=== PATIENT | male | born 1945 | race Caucasian/White ===

== ENCOUNTER 2016-12-31 14:24 | Emergency (ER) | payer BC ==
[~2016-12-31] VITALS: Ht 188 cm; Wt 97.5 kg
[2016-12-31 14:26] VITALS: BP 135/77; PULSE 81; RESP 18; TEMP 98.3; O2SAT 91
[2016-12-31] MEDS ORDERED: RESP: ALBUTEROL 2.5 MG/IPRATROPIUM 0.5 MG NEB (SCH) NEB ONE ×2 (14:45)
--- NOTE | 2016-12-31 14:50 | PD ---
HPI Chief Complaint: Respiratory Symptoms Time Seen by Provider: 14:36 Travel History International Travel<30 days: No Contact w/Intl Traveler<30days: No Traveled to known affect area: No History of Present Illness HPI This patient complains of congestion and cough and shortness of breath. Patient has oxygen and nebulizer dependent COPD and continues to smoke. He is visiting from [place]. He denies fever or chest pain. Symptoms severity is moderate. No alleviating factors. Duration 4 days PFSH Past Medical History Cardiovascular Problems: Yes ([place], STENT X 1) Respiratory: Yes (COPD) Social History Alcohol Use: No Tobacco Use: Yes Substance Use: No Allergies-Medications (Allergen,Severity, Reaction): Coded Allergies: No Known Allergies (Unverified , 12/31/16) Reported Meds & Prescriptions Reported Meds & Active Scripts Active Reported Anoro Ellipta Inh (Umeclidinium/Vilanterol) 62.5-25 Mcg/Act Aero 1 Puff INH DAILY Amlodipine (Amlodipine Besylate) 2.5 Mg Tab 2.5 Mg PO DAILY Lisinopril 40 Mg Tab 40 Mg PO DAILY Metoprolol Tartrate 25 Mg Tab 25 Mg PO BID Review of Systems General / Constitutional: No: Fever Eyes: No: Visual changes HENT: Positive: Congestion, No: Headaches Cardiovascular: No: Chest Pain or Discomfort Respiratory: Positive: Cough, Shortness of Breath, Wheezing Gastrointestinal: No: Abdominal Pain Genitourinary: No: Dysuria Musculoskeletal: No: Pain Skin: No Rash Neurologic: No: Weakness Psychiatric: No: Depression Endocrine: No: Polydipsia Hematologic/Lymphatic: No: Easy Bruising Physical Exam Narrative GENERAL: Well-nourished, well-developed patient in no apparent distress. SKIN: Focused skin assessment reveals no rash and nodules. Skin is Warm and dry. HEAD: Atraumatic. Normocephalic. EYES: Pupils equal and round. No scleral icterus. No injection or drainage. ENT: No nasal bleeding or discharge. Mucous membranes pink and moist. NECK: Trachea midline. No JVD. CARDIOVASCULAR: Regular rate and rhythm. No murmur appreciated. RESPIRATORY: No accessory muscle use. Diffuse expiratory wheezes and some rhonchi. Breath sounds equal bilaterally. GASTROINTESTINAL: Abdomen soft, non-tender, nondistended. Hepatic and splenic margins not palpable. MUSCULOSKELETAL: No obvious deformities. No clubbing. No cyanosis. No edema. NEUROLOGICAL: Awake and alert. No obvious cranial nerve deficits. Motor grossly within normal limits. Normal speech. PSYCHIATRIC: Appropriate mood and affect; insight and judgment poor. Data Data Last Documented VS Vital Signs Date Time Temp Pulse Resp B/P Pulse Ox O2 Delivery O2 Flow Rate FiO2 12/31/16 14:55 93 Nasal Cannula 3.00 12/31/16 14:50 18 12/31/16 14:26 98.3 81 135/77 Orders Chest, Single Ap (12/31/16 ) Albuterol-Ipratropium Neb (Duoneb Neb) (12/31/16 14:45) Albuterol-Ipratropium Neb (Duoneb Neb) (12/31/16 14:45) Methylprednisolone So Succ Inj (Solumedr (01/01/17 09:00) Methylprednisolone So Succ Inj (Solumedr (12/31/16 15:00) MDM Medical Decision Making Medical Screen Exam Complete: Yes Emergency Medical Condition: Yes Medical Record Reviewed: Yes Differential Diagnosis Differential diagnosis includes COPD, asthma, pneumonia, bronchitis, CHF Narrative Course I have reviewed the patient's electronic medical record. I gave him a series of nebulizer treatments I gave him an injection of Solu-Medrol I reviewed his chest x-ray which shows only atelectasis in the left base otherwise normal On recheck he is clear and much better Stable for outpatient follow-up Discussed importance of smoking cessation He has a nebulizer with him and oxygen Prednisone written Diagnosis Primary Impression: COPD with acute exacerbation Additional Instructions: The patient was advised to follow up with their physician and return if they worsen. Med/Other Pt SpecificInfo: Prescription(s) given Scripts Prednisone 20 Mg Tab20 Mg PO DAILY #5 TAB Ref 0 Prov:Ephraim Washington MD 12/31/16 Disposition: 01 DISCHARGE HOME Condition: Stable Ephraim Washington MD Dec 31, 2016 14:50
[2016-12-31] MEDS ORDERED: UMEC1AER INH (14:51)
[2016-12-31] MEDS ORDERED: METO25TA3 PO (14:51)
[2016-12-31] MEDS ORDERED: LISI40TA PO (14:51)
[2016-12-31] MEDS ORDERED: AMLO2.5T PO (14:51)
[2016-12-31 14:55] VITALS: O2SAT 93
[2016-12-31] MEDS ORDERED: methylPREDNISolone SOD SUCC 125 MG/2 ML VIAL IM ONE (15:00)
--- NOTE | 2016-12-31 15:08 | RADRPT ---
EXAM DATE/TIME: 12/31/2016 14:55 [facility] COMPARISON: No previous studies available for comparison. INDICATIONS : Shortness of breath. MEDICAL HISTORY : Hypertension. Myocardial infarction. Chronic obstructive pulmonary disease. SURGICAL HISTORY : Cholecystectomy. Cardiac cath. ENCOUNTER: Initial ACUITY: 1 day PAIN SCORE: 0/10 LOCATION: Bilateral chest FINDINGS: Mild linear parenchymal opacities in the left lung base consistent with atelectasis. No significant f ocal pleural or parenchymal opacities. Cardiac silhouette is at the upper limits of normal in size fo r portable technique. Bony thorax is intact. CONCLUSION: 1. Minimal left lower lobe atelectasis. 2. Otherwise, no acute cardiopulmonary disease. Sanjiv El MD on December 31, 2016 at 15:04 Board Certified Radiologist. This report was verified electronically.
[2016-12-31] MEDS ORDERED: PRED20 PO (15:16)
[2017-01-01] MEDS ORDERED: methylPREDNISolone SOD SUCC 125 MG/2 ML VIAL IM SCH (09:00)
== END 2016-12-31 15:39 | disposition home or self-care (01) ==
LOC: PHED 14:24
DX: J44.1 Chronic obstructive pulmonary disease with (acute) exacerbation (principal); Z72.0 Tobacco use
CPT/HCPCS: 71010; 94640; 94664; 96372; 99284; J2930